=== PATIENT | male | born 1960 | race Caucasian/White ===

== ENCOUNTER 2023-04-30 15:41 | Observation (INO) ==
[2023-04-30 19:24] LABS: ABS Lymphocytes 0.6 10^3/uL (1.0-4.8); ABS Monocytes 0.9 10^3/uL (0.0-1.1); ABS Neutrophils 9.1 10^3/uL (1.5-7.6); ABS Nucleated RBC 0.01 10^3/ul; Eosinophil % 0.3 %; Hematocrit 37.8 % (38-53); Hemoglobin 13.5 g/dL (13.2-16.3); Lymphocyte % 5.6 %; Mean Corpuscular Hemoglobin 31.6 pg (27-33); Mean Corpuscular Hgb Conc 35.6 g/dL (31-36); Mean Corpuscular Volume 88.7 fL (80-97); Mean Platelet Volume 9.1 fL (7.5-11.2); Nucleated Red Blood Cells % 0.1 /100 WBC (0.0-0.4); Platelet Count 207 10^3/uL (150-450); Red Blood Count 4.26 10^6/uL (4.06-5.63); White Blood Count 10.8 10^3/uL (3.6-10.2)
[2023-04-30 19:35] LABS: Albumin/Globulin Ratio 1.2 (1-3); C Reactive Protein 254.36 mg/L (<8.01); Calcium 8.6 mg/dL (8.6-10.3); Creatinine, Serum 1.19 mg/dL (0.67-1.17); Globulin 3.4 g/dL (2-4); Potassium 3.1 mmol/L (3.5-5.0); Total Bilirubin 1.4 mg/dL (0.2-1.0); Total Protein 7.4 g/dL (6.4-8.9); eGFR CKD-EPI 69.1 (>60)
[2023-04-30 20:54] LABS: Magnesium 2.2 mg/dL (1.9-2.7)
[2023-04-30] MEDS ORDERED: cefTRIAXone 1 gm/50 mL D5W 1 GM/50 ML BAG IV ONE (21:14)
[2023-04-30] MEDS ORDERED: Azithromycin 500 mg/250 ml NS 500 MG/250 ML BAG IVPB ONE (21:14)
[2023-04-30] MEDS ORDERED: Potassium Chlor 20 meq TAB.ER PO ONE (21:15)
[2023-04-30] MEDS ORDERED: Ondansetron 4 mg VIAL 2 MG/ML 2 ml VIAL IV PRN (21:42)
[2023-04-30] MEDS: NS 0.9% 1000 ml BAG 1,000 ML IV SCH (21:46)
[2023-04-30] MEDS ORDERED: Enoxaparin 40 MG/0.4 ML SYR SUBCUT SCH (22:00)
[2023-04-30 23:09] LABS: Calcium 8.3 mg/dL (8.6-10.3); Creatinine, Serum 1.05 mg/dL (0.67-1.17); eGFR CKD-EPI 80.3 (>60)
[2023-04-30 23:24] LABS: Urine Osmo 871 mOsm/kg (150-1150)
[2023-05-01] MEDS ORDERED: Potassium Chlor 20 meq TAB.ER PO ONE (00:25)
[2023-05-01] MEDS: Senna TAB 8.6 mg TAB PO SCH ×2 (00:56→09:28)
[2023-05-01] MEDS: NS 0.9% 1000 ml BAG 1,000 ML IV SCH ×2 (03:35→09:30)
[2023-05-01 07:06] LABS: Hemoglobin 11.8 g/dL (13.2-16.3); Mean Corpuscular Hemoglobin 31.4 pg (27-33); Mean Corpuscular Hgb Conc 35.9 g/dL (31-36); Mean Corpuscular Volume 87.4 fL (80-97); Mean Platelet Volume 9.4 fL (7.5-11.2); Platelet Count 195 10^3/uL (150-450); Red Blood Count 3.77 10^6/uL (4.06-5.63); Red Cell Distribution Width 13.1 % (12-17); White Blood Count 8.7 10^3/uL (3.6-10.2)
[2023-05-01 07:26] LABS: Albumin 3.2 g/dL (3.2-5.2); Albumin/Globulin Ratio 1.2 (1-3); Calcium 7.7 mg/dL (8.6-10.3); Creatinine, Serum 0.95 mg/dL (0.67-1.17); Globulin 2.6 g/dL (2-4); Potassium 3.4 mmol/L (3.5-5.0); Total Protein 5.8 g/dL (6.4-8.9); eGFR CKD-EPI 90.5 (>60)
[2023-05-01] MEDS ORDERED: Polyethylene Glycol 3350 17 GM PACKET PO SCH (09:00)
[2023-05-01 09:32] VITALS: BP 151/97
[2023-05-01] MEDS ORDERED: Potassium Chlor 20 meq TAB.ER PO SCH (10:00)
[2023-05-01] MEDS ORDERED: cefTRIAXone 1 gm/50 mL D5W 1 GM/50 ML BAG IV SCH (21:00)
[2023-05-01] MEDS ORDERED: Azithromycin 500 mg/250 ml NS 500 MG/250 ML BAG IVPB SCH (22:00)
== END 2023-05-01 12:00 | disposition home or self-care (01) ==
LOC: ED 15:41 → EDHOLD 15:41 → SUATTDRO 21:42 → EDHOLD 23:17 → MED 05-01 00:17
PROVIDERS: ADMIT Internal Medicine; ATTEND Student in an Organized Health Care Education/Training Program